=== PATIENT | female | born 1980 | race Caucasian/White ===

== ENCOUNTER 2018-08-30 09:50 | Inpatient (IN) | payer MEDICAID ==
[~2018-08-30 09:50] MED LIST: CEFAZOLIN 1 GM INJ; METOCLOPRAMIDE 10 MG INJ
[2018-08-30] MEDS ORDERED: CEFAZOLIN 2 GM/50 ML (PMX) 50 ML IV (10:00)
[2018-08-30] MEDS ORDERED: CARBOPROST 250 MCG INJ IM ×2 (10:00→16:30)
[2018-08-30] MEDS ORDERED: OXYTOCIN 30 UNITS/LR 500 ML IV ×3 (10:00→16:30)
[2018-08-30] MEDS ORDERED: MISOPROSTOL 200 MCG TAB PR ×2 (10:00→16:30)
[2018-08-30] MEDS ORDERED: METHYLERGONOVINE 0.2 MG INJ IM ×2 (10:00→16:30)
[2018-08-30] MEDS: LACTATED RINGER'S 1,000 ML IV* (10:29)
[2018-08-30 10:31] LABS: ADD MAN DIFF? NO
[2018-08-30 10:39] LABS: BASOPHILS % 0.1 % (0.0-2.0); EOSINOPHILS % 0.1 % (0.0-7.0); HEMATOCRIT 39.9 % (37.0-47.0); LYMPHOCYTES # 1.3 10^3/ul (0.8-2.9); LYMPHOCYTES % 18.5 % (15.0-51.0); MEAN CORPUSCULAR HEMOGLOBIN 34.2 pg (29.0-33.0); MEAN CORPUSCULAR HGB CONC 35.1 g/dl (32.0-37.0); MEAN CORPUSCULAR VOLUME 97.6 fl (82.0-101.0); MEAN PLATELET VOLUME 10.9 fl (7.4-10.4); MONOCYTE # 0.5 10^3/ul (0.3-0.9); MONOCYTES % 7.1 % (0.0-11.0); NEUTROPHIL # 5.2 10^3/ul (1.6-7.5); NEUTROPHILS % 73.3 % (39.0-77.0); PLATELET COUNT 148 10^3/UL (140-415); RED BLOOD COUNT 4.09 10^6/ul (4.20-5.40); RED CELL DISTRIBUTION WIDTH 13.2 % (11.5-14.5)
[2018-08-30 10:59] LABS: INR 0.86; PARTIAL THROMBOPLASTIN TIME 25.6 Sec (23.0-35.0); PROTIME 11.8 Sec (11.9-14.9); PT RATIO 0.9
[2018-08-30 11:01] LABS: GLUCOSE 91 mg/dl (70-220)
[2018-08-30 11:28] LABS: HEPATITIS B SURFACE ANTIGEN NEGATIVE (NEGATIVE)
[2018-08-30] MEDS ORDERED: morphine SULFATE/PF (10 MG/10 ML) INJ (12:36)
[2018-08-30] MEDS ORDERED: METOCLOPRAMIDE 10 MG INJ ×2 (12:37→12:51)
[2018-08-30] MEDS ORDERED: BUPIVACAINE 0.75%/DEXT (SPINAL) 2 ML INJ (12:37)
[2018-08-30] MEDS ORDERED: ONDANSETRON 4 MG INJ (12:50)
[2018-08-30] MEDS ORDERED: PHENYLephrine (100 MCG/ML) 5ML SYG (12:53)
[2018-08-30] MEDS ORDERED: KETOROLAC 30 MG INJ (13:41)
[2018-08-30 14:59] LABS: RAPID PLASMA REAGIN NONREACTIVE (NR)
[2018-08-30] MEDS ORDERED: OXYCODONE/ACETAMINOPHEN (5/325) TAB PO (16:30)
[2018-08-30] MEDS ORDERED: NALOXONE (0.4 MG/ML) INJ IV (16:30)
[2018-08-30] MEDS ORDERED: morphine (1 MG/ML) 10ML SYRINGE IV ×3 (16:30)
[2018-08-30] MEDS ORDERED: morphine 2 MG INJ IV ×3 (16:30)
[2018-08-30] MEDS ORDERED: KETOROLAC 30 MG INJ IV (16:30)
[2018-08-30] MEDS ORDERED: DIPHENHYDRAMINE 50 MG INJ IV ×2 (16:30)
[2018-08-30] MEDS ORDERED: ONDANSETRON 4 MG INJ IV ×2 (16:30)
[2018-08-30] MEDS: OXYTOCIN 30 UNITS/LR 500 ML IV (17:14)
[2018-08-30] MEDS: SENNA/DOCUSATE NA (8.6MG/50MG) TAB PO (22:02)
[2018-08-30] MEDS: LACTATED RINGER'S 1,000 ML IV (23:19)
[2018-08-31] MEDS: LACTATED RINGER'S 1,000 ML IV ×3 (03:34→11:42)
[2018-08-31 09:03] LABS: ADD MAN DIFF? NO
[2018-08-31 09:10] LABS: BASOPHILS % 0.4 % (0.0-2.0); EOSINOPHILS % 0.3 % (0.0-7.0); HEMATOCRIT 32.6 % (37.0-47.0); HEMOGLOBIN 11.3 g/dl (12.0-16.0); LYMPHOCYTES # 0.9 10^3/ul (0.8-2.9); LYMPHOCYTES % 10.6 % (15.0-51.0); MEAN CORPUSCULAR HEMOGLOBIN 34.2 pg (29.0-33.0); MEAN CORPUSCULAR HGB CONC 34.7 g/dl (32.0-37.0); MEAN CORPUSCULAR VOLUME 98.8 fl (82.0-101.0); MEAN PLATELET VOLUME 10.7 fl (7.4-10.4); MONOCYTE # 0.5 10^3/ul (0.3-0.9); NEUTROPHIL # 6.6 10^3/ul (1.6-7.5); NEUTROPHILS % 82.3 % (39.0-77.0); PLATELET COUNT 130 10^3/UL (140-415); RED CELL DISTRIBUTION WIDTH 13.2 % (11.5-14.5)
[2018-08-31] MEDS: SENNA/DOCUSATE NA (8.6MG/50MG) TAB PO ×2 (09:25→20:40)
[2018-08-31] MEDS: INFLUENZA VIRUS VACCINE 0.5 ML (DISPENSING) IM* (09:27)
[2018-08-31] MEDS: IBUPROFEN 800 MG TAB PO ×2 (13:48→22:06)
[2018-08-31] MEDS: OXYCODONE/ACETAMINOPHEN (5/325) TAB PO (20:41)
[2018-09-01] MEDS: IBUPROFEN 800 MG TAB PO ×3 (06:35→21:24)
[2018-09-01] MEDS: SENNA/DOCUSATE NA (8.6MG/50MG) TAB PO ×2 (09:14→21:24)
[2018-09-02] MEDS: IBUPROFEN 800 MG TAB PO ×2 (05:42→13:48)
[2018-09-02] MEDS: DIPHTH/TET/ACEL PERTUSS (ADULT) 0.5 ML VIAL IM* (09:00)
[2018-09-02] MEDS: SENNA/DOCUSATE NA (8.6MG/50MG) TAB PO (09:47)
[2018-09-02] MEDS: LANOLIN 7 GM TUBE TOP (09:47)
== END 2018-09-02 14:25 | disposition home or self-care (01) | DRG 785 ==
LOC: L-D 09:50 → PP1 16:12
PROVIDERS: Obstetrics & Gynecology
PROC: 10D00Z1 Extraction of Products of Conception, Low, Open Approach (ICD-10-PCS; principal; 2018-08-30 12:30)
PROC: 0UL70ZZ Occlusion of Bilateral Fallopian Tubes, Open Approach (ICD-10-PCS; 2018-08-30 12:30)
DX: O34.211 Maternal care for low transverse scar from previous cesarean delivery (principal); O24.429 Gestational diabetes mellitus in childbirth, unspecified control; Z30.2 Encounter for sterilization; Z3A.39 39 weeks gestation of pregnancy; Z37.0 Single live birth
CPT/HCPCS: 82947; 85025; 85610; 85730; 86592; 86850; 86900; 86901; 87340; 88302; 90686; 99464